=== PATIENT | female | born 1985 | race Caucasian/White ===

== ENCOUNTER 2019-01-21 09:00 | Inpatient (IN) | payer OTHER ==
[~2019-01-21] VITALS: Ht 157.5 cm; Wt 57.6 kg
[2019-01-28] MEDS ORDERED: PRENATAL TABLE1 EAC1 (13:31)
== END 2019-01-30 11:09 | disposition home or self-care (01) | DRG 807 ==
LOC: LDR 01-28 12:59 → SURG-SUITE 01-28 21:05 → OB/GYN 02-13 10:15
PROVIDERS: ADMIT Obstetrics & Gynecology
PROC: 10E0XZZ Delivery of Products of Conception, External Approach (ICD-10-PCS; principal; 2019-01-28)
PROC: 0HQ9XZZ Repair Perineum Skin, External Approach (ICD-10-PCS; 2019-01-28)
PROC: 3E033VJ Introduction of Other Hormone into Peripheral Vein, Percutaneous Approach (ICD-10-PCS; 2019-01-28)
PROC: 4A1HXCZ Monitoring of Products of Conception, Cardiac Rate, External Approach (ICD-10-PCS; 2019-01-28)
DX: O70.1 Second degree perineal laceration during delivery (principal); Z37.0 Single live birth; Z3A.37 37 weeks gestation of pregnancy; Z22.330 Carrier of Group B streptococcus

== ENCOUNTER 2019-01-28 12:03 | Outpatient (CLI) | payer OTHER ==
[2019-01-28] MEDS ORDERED: PRENATAL TABLE1 EAC1 (13:31)
== END 2019-01-28 13:53 | disposition still patient (30) ==
LOC: NST 12:03
DX: Z34.83 Encounter for supervision of other normal pregnancy, third trimester (principal)